=== PATIENT | female | born 1975 | race African-American/Black ===

== ENCOUNTER 2025-04-28 10:55 | Emergency (ER) | payer MEDICAID, OTHER ==
[~2025-04-28] VITALS: Ht 177.8 cm; Wt 136.2 kg
--- NOTE | 2025-04-28 11:04 | ECG ---
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
--- NOTE | 2025-04-28 11:07 | ED.PDOC ---
History of Present Illness HPI Comments 49-year-old female who comes in with chief complaint of tremors and shaking. The patient has a history of depression with schizophrenia and was on medication which was changed approximately two months ago. We are unsure of what medication she was on at the time. There has been no vomiting or diarrhea. The patient comes in now shaking from home. The patient's charge entry called and states that she took her to [facility] yesterday but they did a CAT scan of the head and that was all. The patient was then discharged home but the symptoms persisted. When the paramedics arrived, the patient's Accu-Chek was 65. The patient was then given oral glucose and the Acc u-Chek went up to 83. Chief Complaint: Tremors Time Seen by MD: 10:58 Reviewed Notes: Nurses Notes, Human Resources Advisor Notes, Medications, Allergies (NKDA) Allergies: Coded Allergies: Diphenhydramine (Verified Allergy, Mild, 04/28/25) Information Source: Patient (The patient is mentally delayed), Emergency Med Personnel Mode of Arrival: EMS Severity: Moderate Timing: Days Duration: Since onset Prehospital treatment: Accucheck (Sixty-five), Video Photographer Associated signs and symptoms Tremors with shaking Past Medical History PAST MEDICAL HISTORY: Depression, Schizophrenia Past Medical History (Other): Delayed mentally Surgical History: Denies all surgeries TURN SUPERVISOR History: No Pertinent TURN SUPERVISOR History Family History Family History: Reviewed,noncontributory to illness Social History Smoker: Non-Smoker Alcohol: Denies ETOH Use Drugs: Denies Drug Use Lives In: Home Constitutional: denies: chills, diaphoresis, fatigue, fever, malaise, sweats, weakness, others EENTM: denies: blurred vision, double vision, ear bleeding, ear discharge, ear drainage, ear pain, ear ringing, eye pain, eye redness, hearing loss, mouth pain, mouth swelling, nasal discharge, nose bleeding, nose congestion, nose pain, photophobia, tearing, throat pain, throat swelling, voice changes, others Respiratory: denies: cough, hemoptysis, orthopnea, SOB at rest, shortness of breath, SOB with excertion, stridor, wheezing, others Cardiovascular: denies: chest pain, dizzy spells, diaphoresis, Dyspnea on exertion, edema, irregular heart beat, left arm pain, lightheadedness, palpitations, PND, syncope, others Gastrointestinal: denies: abdomen distended, abdominal pain, blood streaked bowels, constipated, diarrhea, dysphagia, difficulty swallowing, hematemesis, melena, nausea, poor appetite, poor fluid intake, rectal bleeding, rectal pain, vomiting, others Genitourinary: denies: abnormal vagina bleeding, burning, dyspareunia, dysuria, flank pain, frequency, hematuria, incontinence, pain, , vagina discharge, urgency, others Neurological: reports: dizziness, tremors; denies: fainting, headache, left sided numbness, left sided weakness, numbness, paresthesia, pre-existing deficit, right sided numbness, right sided weakness, seizure, speech problems, tingling, weakness, others Musculoskeletal: denies: back pain, gout, joint pain, joint swelling, muscle pain, muscle stiffness, neck pain, others Integumetry: denies: bruises, change in color, change in hair/nails, dryness, laceration, lesions, lumps, rash, wounds, others Allergic/Immunocompromised: denies: Difficulty Healing, Frequent Infections, Hives, Itching, others Hematologic/Lymphatic: denies: anemia, blood clots, easy bleeding, easy bruising, swollen glands, others Endocrine: denies: excessive hunger, excessive sweating, excessive thirst, excessive urination, flushing, intolerance to cold, intolerance to heat, unexplained weight gain, unexplained weight loss, others Psychiatric: denies: anxiety, bipolar disorder, depression, hopeless, panic disorder, schizophrenia, sleepless, suicidal, others Physical Exam General Appearance: Mild Distress, Obese HEENT: Normal ENT Inspection, Pharynx Normal, TMs Normal Neck: Full Range of Motion, Non-Tender, Normal, Normal Inspection Respiratory: Chest Non-Tender, Lungs Clear, No Accessory Muscle Use, No Respiratory Distress, Normal Breath Sounds Cardiovascular: No Edema, No JVD, No Murmur, No Gallop, Normal Peripheral Pulses, Regular Rate/Rhythm Breast Exam: Deferred Gastrointestinal: No Organomegaly, Non Tender, No Pulsatile Mass, Normal Bowel Sounds, Soft Genitalia: Deferred Pelvic: Deferred Rectal: Deferred Extremities: No calf tenderness, Normal capillary refill, Normal inspection, Normal range of motion, Non-tender, No pedal edema Musculoskeletal : Apperance: Normal Neurologic: molecular biologist II-XII nml as Tested, Motor Weakness, Normal Affect, Normal Mood, No Sensory Deficits, Other (Patient is mentally delayed) Cerebellar Function: Normal Reflexes: Normal Skin: Dry, Normal Color, Warm Lymphatic: No Adenopathy Was a procedure done? Was a procedure done?: No Differential Dx Considerations may include: Generalized weakness, tremors, dehydration X-Ray, Labs, Meds, VS Vital Signs Date Time Temp Pulse Resp B/P (MAP) Pulse Ox O2 Delivery O2 Flow Rate FiO2 04/28/25 14:17 98.0 77 18 147/94 (111) 97 98.0 04/28/25 12:37 98.4 70 16 117/88 (98) 98 98.4 04/28/25 12:37 70 16 98 Room Air 04/28/25 11:06 97.9 68 16 142/79 (100) 98 97.9 04/28/25 10:59 73 Lab Test 04/28/25 14:36 04/28/25 13:13 Range/Units White Blood Count 4.7 4.4-10.8 10^3/uL Red Blood Count 5.08 4.0-5.20 10^6/uL Hemoglobin 13.9 12.2-16.2 g/dL Hematocrit 43.4 36.0-46.0 % Mean Corpuscular Volume 85.6 80.0-100.0 fL Mean Corpuscular Hemoglobin 27.4 L 28.0-32.0 pg Mean Corpuscular Hemoglobin Concent 32.0 32.0-36.0 g/dL Red Cell Distribution Width 19.1 H 11.8-14.3 % Platelet Count 145 140-450 10^3/uL Mean Platelet Volume 9.1 6.9-10.8 fL Neutrophils (%) (Auto) 57.6 37.0-80.0 % Lymphocytes (%) (Auto) 31.5 10.0-50.0 % Monocytes (%) (Auto) 5.9 0.0-12.0 % Eosinophils (%) (Auto) 4.3 0.0-7.0 % Basophils (%) (Auto) 0.7 0.0-2.0 % Neutrophils # (Auto) 2.7 1.6-8.6 10 ^3/uL Lymphocytes # (Auto) 1.5 0.4-5.4 10 ^3/uL Monocytes # (Auto) 0.3 0-1.3 10 ^3/uL Eosinophils # (Auto) 0.2 0-0.8 10 ^3/uL Basophils # (Auto) 0 0-0.2 10 ^3/uL Nucleated Red Blood Cells 0.2 % Sodium Level 141 136-145 mmol/L Potassium Level 4.6 3.5-5.1 mmol/L Chloride Level 104 98-107 mmol/L Carbon Dioxide Level 30 20-31 mmol/L Anion Gap 7 5-15 Blood Urea Nitrogen 11 9-23 mg/dL Creatinine 1.14 H 0.550-1.02 mg/dL Glomerular Filtration Rate Calc 59 >90 mL/min BUN/Creatinine Ratio 9.6 L 10.0-20.0 Serum Glucose 109 H 74-106 mg/dL Calcium Level 9.8 8.7-10.4 mg/dL Current Medications Medications (Trade) Dose Ordered Sig/Ladarius Route Start Time Stop Time Status Last Admin Sodium Chloride 500 ml @ 500 mls/hr Q1H ONCE IV 04/28/25 11:15 04/28/25 12:14 DC 04/28/25 11:59 Lorazepam (Ativan Inj) 1 mg ONCE ONCE IV 04/28/25 11:15 04/28/25 11:16 DC 04/28/25 12:02 The patient's CBC is within normal limits The chemistry panel is within normal limits except for an elevated creatinine of 1.14 The patient was given normal saline at 500 cc The patient was also given Ativan 1 mg IV push The patient is being discharged The patient will follow up with the primary care doctor The diagnosis is tremors The patient understands and agrees with the management Images Reviewed?: Images reviewed and evaluated by me Time of 1ST Reevaluation: 11:44 Reevaluation 1ST: Unchanged Patient Education/Counseling: Diagnosis, Treatment, Prognosis, Need For Follow Up Family Education/Counseling: No Family Present SEPSIS Sepsis Screen Physician Orders Heplock Iv (04/28/25 11:05) Video Photographer (04/28/25 11:05) Blood Pressure (04/28/25 11:05) Pulse Oximetry (04/28/25 11:05) Vital Signs Date Time Temp Pulse Resp B/P (MAP) Pulse Ox O2 Delivery O2 Flow Rate FiO2 04/28/25 14:17 98.0 77 18 147/94 (111) 97 98.0 04/28/25 12:37 98.4 70 16 117/88 (98) 98 98.4 04/28/25 12:37 70 16 98 Room Air 04/28/25 11:06 97.9 68 16 142/79 (100) 98 97.9 04/28/25 10:59 73 Laboratory Tests Test 04/28/25 14:36 White Blood Count 4.7 10^3/uL (4.4-10.8) Medications Medications Dose Ordered Sig/Ladarius Route Start Time Stop Time Status Last Admin Dose Admin Lorazepam 1 mg ONCE ONCE IV 04/28/25 11:15 04/28/25 11:16 DC 04/28/25 12:02 Sodium Chloride 500 ml @ 500 mls/hr Q1H ONCE IV 04/28/25 11:15 04/28/25 12:14 DC 04/28/25 11:59 Departure 1 Departure Time of Disposition: 15:01 Impression: Primary Impression: Occasional tremors Additional Impression: Acute anxiety Disposition: 01 HOME / SELF CARE / HOMELESS Condition: Fair Discharged With: Self Critical Care Note Critical Care Time?: No Stability Stability form required: No Heart Score Heart Score: Heart Score Response (Comments) Value History N/A 0 EKG N/A 0 Age N/A 0 Risk Factors N/A 0 Troponin N/A 0 Total 0 JELLY LIVINGSTON MD Apr 28, 2025 11:07
[2025-04-28] MEDS: SODIUM CHLORIDE 0.9% 500 ML IV ONE (11:59)
[2025-04-28] MEDS: LORazepam 2MG/ML-1ML VIAL IV ONE (12:02)
[2025-04-28 13:47] LABS: Chloride 104 mmol/L (98-107); Potassium 4.6 mmol/L (3.5-5.1); Sodium 141 mmol/L (136-145)
[2025-04-28 13:48] LABS: Anion Gap 7 (5-15); Calcium 9.8 mg/dL (8.7-10.4); Carbon Dioxide 30 mmol/L (20-31)
[2025-04-28 13:53] LABS: BUN/Creatinine Ratio 9.6 (10.0-20.0); Blood Urea Nitrogen 11 mg/dL (9-23)
[2025-04-28 13:54] LABS: Glucose 109 mg/dL (74-106)
[2025-04-28 14:57] LABS: Hematocrit 43.4 % (36.0-46.0); Hemoglobin 13.9 g/dL (12.2-16.2); Mean Corpuscular Hemoglobin 27.4 pg (28.0-32.0); Mean Corpuscular Volume 85.6 fL (80.0-100.0); Nucleated Red Blood Cells % 0.2 %
[2025-04-28 15:22] VITALS: BP 133/64; PULSE 72; RESP 16; TEMP 98.7; O2SAT 99
== END 2025-04-28 15:24 | disposition home or self-care (01) ==
LOC: ER 10:55 → EDBD 10:55 → ER 15:24
DX: R25.1 Tremor, unspecified (principal); F41.9 Anxiety disorder, unspecified; F20.9 Schizophrenia, unspecified; Z79.899 Other long term (current) drug therapy
CPT/HCPCS: 36415; 80048; 93005; 96361; 96374; 99284; J2060; J7040

== ENCOUNTER 2025-08-19 13:44 | Emergency (ER) | payer MEDICAID ==
[~2025-08-19] VITALS: Ht 175.3 cm; Wt 127.0 kg
[2025-08-19 14:00] VITALS: PULSE 67; RESP 16; O2SAT 99
[2025-08-19] MEDS: SODIUM CHLORIDE 0.9% 1,000 ML IV ONE (14:15)
--- NOTE | 2025-08-19 14:31 | ED.PDOC ---
HPI (NEURO) HPI Comments 50-year-old female who presents to the ED via EMS for chief complaint of seizure. Per EMS patient lives at skilled nurse facility and states staff saw patient had tonic-clonic seizure and EMS was called. EMS arrived on scene and noted patient was postictal but slowly became alert and oriented and brought to the ED. Patient has a history of seizures and takes Keppra for which she is compliant but states her medications have not been changed in the past few months. Patient not any ED otherwise alert and oriented and no noted oral trauma or signs of injury are noted. 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 Information Source: Patient, Emergency Med Personnel Mode of Arrival: EMS Brought in by: EMS Past Medical History PAST MEDICAL HISTORY: Depression, Schizophrenia, Seizures Surgical History: Denies all surgeries [employer] History: No Pertinent [employer] History Family History Family History: Reviewed,noncontributory to illness Social History Smoker: Non-Smoker Alcohol: Denies ETOH Use Drugs: Denies Drug Use Lives In: Home Constitutional: denies: chills, diaphoresis, fatigue, fever, malaise, sweats, weakness, others EENTM: denies: blurred vision, double vision, ear bleeding, ear discharge, ear drainage, ear pain, ear ringing, eye pain, eye redness, hearing loss, mouth pain, mouth swelling, nasal discharge, nose bleeding, nose congestion, nose pain, photophobia, tearing, throat pain, throat swelling, voice changes, others Respiratory: denies: cough, hemoptysis, orthopnea, SOB at rest, shortness of breath, SOB with excertion, stridor, wheezing, others Cardiovascular: denies: chest pain, dizzy spells, diaphoresis, Dyspnea on exertion, edema, irregular heart beat, left arm pain, lightheadedness, palpitations, PND, syncope, others Gastrointestinal: denies: abdomen distended, abdominal pain, blood streaked bowels, constipated, diarrhea, dysphagia, difficulty swallowing, hematemesis, melena, nausea, poor appetite, poor fluid intake, rectal bleeding, rectal pain, vomiting, others Genitourinary: denies: abnormal vagina bleeding, burning, dyspareunia, dysuria, flank pain, frequency, hematuria, incontinence, pain, , vagina discharge, urgency, others Neurological: reports: seizure; denies: dizziness, fainting, headache, left sided numbness, left sided weakness, numbness, paresthesia, pre-existing deficit, right sided numbness, right sided weakness, speech problems, tingling, tremors, weakness, others Musculoskeletal: denies: back pain, gout, joint pain, joint swelling, muscle pain, muscle stiffness, neck pain, others Integumetry: denies: bruises, change in color, change in hair/nails, dryness, laceration, lesions, lumps, rash, wounds, others Allergic/Immunocompromised: denies: Difficulty Healing, Frequent Infections, Hives, Itching, others Hematologic/Lymphatic: denies: anemia, blood clots, easy bleeding, easy bruising, swollen glands, others Endocrine: denies: excessive hunger, excessive sweating, excessive thirst, excessive urination, flushing, intolerance to cold, intolerance to heat, unexplained weight gain, unexplained weight loss, others Psychiatric: denies: anxiety, bipolar disorder, depression, hopeless, panic disorder, schizophrenia, sleepless, suicidal, others All Other Systems: Reviewed and Negative Physical Exam General Appearance: Moderate Distress HEENT: Normal ENT Inspection, Pharynx Normal, TMs Normal Neck: Full Range of Motion, Non-Tender, Normal, Normal Inspection Respiratory: Chest Non-Tender, Lungs Clear, No Accessory Muscle Use, No Respiratory Distress, Normal Breath Sounds Cardiovascular: No Edema, No JVD, No Murmur, No Gallop, Normal Peripheral Pulses, Regular Rate/Rhythm Breast Exam: Deferred Gastrointestinal: No Organomegaly, Non Tender, No Pulsatile Mass, Normal Bowel Sounds, Soft Genitalia: Deferred Pelvic: Deferred Rectal: Deferred Extremities: No calf tenderness, Normal capillary refill, Normal inspection, Normal range of motion, Non-tender, No pedal edema Musculoskeletal : Apperance: Normal Neurologic: Alert, make up operator II-XII nml as Tested, No Motor Deficits, Normal Affect, Normal Mood, No Sensory Deficits Cerebellar Function: NOT DONE Reflexes: NOT DONE Skin: Dry, Normal Color, Warm Peripheral Pulses: 3+ Radial (R), 3+ Radial (L) Lymphatic: No Adenopathy Was a procedure done? Was a procedure done?: No Differential Diagnosis (SZ) Seizure: Psychogenic Seizure, Anticonvulsant Withdrawl, Closed Head Injury, Hypocalcemia, Hypoglycemia, Hyponatremia, Hypoxemia, Syncope, Encephalopathy, Epilepsy-Break Through General Weakness: Anemia, Dysrhythmia, Electrolyte imbalance, Hypoglycemia X-Ray, Labs, Meds, VS Vital Signs Date Time Temp Pulse Resp B/P (MAP) Pulse Ox O2 Delivery O2 Flow Rate FiO2 08/19/25 13:50 98.1 60 22 124/80 99 98.1 Lab Test 08/19/25 14:32 Range/Units Urine Color Yellow Yellow Urine Clarity Clear Clear Urine pH 6.0 5.0-9.0 Urine Specific [place] 1.029 1.001-1.035 Urine Protein Trace H Negative Urine Ketones Trace Negative Urine Blood Negative Negative /uL Urine Nitrite Negative Negative Urine Bilirubin Negative Negative Urine Urobilinogen Normal Negative mg/dL Urine Leukocyte Esterase 1+ Negative /uL Urine RBC 2 0 - 4 /hpf Urine Microscopic WBC 2 0-5 /HPF Urine Squamous Epithelial Cells Few <5 /hpf Urine Bacteria None seen None Seen /hpf Urine Mucus Few None Seen Urine Glucose Normal Normal mg/dL Current Medications Medications (Trade) Dose Ordered Sig/Ladarius Route Start Time Stop Time Status Last Admin Sodium Chloride 1,000 ml @ 1,000 mls/hr Q1H ONCE IV 08/19/25 14:15 08/19/25 15:14 DC 08/19/25 14:15 Levetiracetam 100 ml @ 400 mls/hr ONCE ONCE IV 08/19/25 14:15 08/19/25 14:29 DC 08/19/25 15:24 Patient alert. Possible seizure. Vitals stable. Answering questions. UA shows UTI. Establish intravenous access. Was given fluids. Was given Keppra. She is comfortable. No injuries. CT of the head was not done because this is chronic. No head injury. No sign of any head injury. Was given prescription of Macrobid antibiotic. Was told to follow up with her primary care physician. Was told to come back if there is any problem. Time of 1ST Reevaluation: 15:00 Reevaluation 1ST: Unchanged Patient Education/Counseling: Diagnosis, Treatment Family Education/Counseling: No Family Present Departure 1 Departure Time of Disposition: 15:37 Impression: Primary Impression: Occasional tremors Additional Impressions: Acute anxiety UTI (urinary tract infection) Qualified Codes: N30.00 - Acute cystitis without hematuria Disposition: 01 HOME / SELF CARE / HOMELESS Condition: Good e-Prescriptions Nitrofurantoin Monohydrate Mac (Macrobid) 100 Mg Cap 100 MG PO BID for 7 Days, #14 CAP Prov: BRANDI VILLANUEVA MD 08/19/25 Discharged With: Self Critical Care Note Critical Care Time?: No Stability Stability form required: No Heart Score Heart Score: Heart Score Response (Comments) Value History N/A 0 EKG N/A 0 Age N/A 0 Risk Factors N/A 0 Troponin N/A 0 Total 0 I personally scribed for BRANDI VILLANUEVA MD ([email or web address]) on 08/19/25 at 14:30. Electronically submitted by Krishna Trejo ([email or web address]). BRANDI VILLANUEVA MD Aug 19, 2025 14:30
[2025-08-19 14:53] LABS: Urine Protein, UAD TRACE (Negative)
[2025-08-19] MEDS: levETIRAcetam 1000 mg/100ml 100 ML IV ONE ×2 (15:24→15:28)
[2025-08-19] MEDS ORDERED: NITR-87 PO (15:39)
[2025-08-19 16:00] VITALS: BP 115/60; PULSE 55; RESP 16; TEMP 98.1; O2SAT 99
== END 2025-08-19 18:03 | disposition home or self-care (01) ==
LOC: EDBD 13:44 → ER 13:48
DX: N39.0 Urinary tract infection, site not specified (principal); R25.1 Tremor, unspecified; F41.9 Anxiety disorder, unspecified; Z79.899 Other long term (current) drug therapy
CPT/HCPCS: 81001; 96361; 96365; 96367; 99284; J0696; J1953; J7030